=== PATIENT | male | born 1980 | race Caucasian/White ===

== ENCOUNTER 2022-07-29 09:22 | Observation (INO) | payer OTHER, SELFPAY ==
--- NOTE | ~2022-07-29 | CT_ITS ---
EXAMINATION: CT abdomen pelvis w con DATE: 07/29/2022 14:41 INDICATION: radha-rectal abscess TECHNIQUE: Computed tomography (CT) of the abdomen and pelvis was performed with 100 mL Omnipaque-350 intravenous contrast. Automated exposure control and iterative reconstruction technique were employe d. The dose-length product was 410.35 mGy-cm. COMPARISON: None. FINDINGS: Lower thorax: Unremarkable Liver: Normal. Biliary/Gallbladder: Gallbladder is normal. No bile duct dilation. Pancreas: No mass or duct dilation. Spleen: Normal. Adrenals:No mass. Kidneys: No suspicious mass, stone, or hydronephrosis. Bilateral hypodensities that are too small to characterize. GI tract: No small or large bowel dilation. Normal appendix. Diverticulosis without diverticulitis. Mesentery/Peritoneum: No ascites, mass, or free air. Retroperitoneum: No mass. Atherosclerotic abdominal aorta and iliac plaques. Pelvis: Pelvic organs are within normal limits. Soft Tissues: 5.0 x 3.5 x 6.3 cm rim-enhancing fluid collection in the right perirectal subcutaneous fat, with a small tract extending to the rectal wall. Bones: No acute osseous finding. IMPRESSION: 6.3 cm perirectal abscess. Reviewed, dictated and finalized at location K. IMPRESSION: 6.3 cm perirectal abscess.
[2022-07-29 09:41] VITALS: BP 144/99; PULSE 128; RESP 20; TEMP 36.6; O2SAT 97
--- NOTE | 2022-07-29 12:48 | ED.WOUNDLAC ---
HPI - Wound/Laceration General Chief Complaint: Wound/Laceration <Milka Woody PA-C - Last Filed: 07/29/22 15:36> Stated Complaint: abscess <MK Scott Last Filed: 07/29/22 15:36> Time Seen by Provider: 07/29/22 12:35 <MK Scott Last Filed: 07/29/22 15:36> Source: patient <MK Scott Last Filed: 07/29/22 15:36> Mode of arrival: ambulatory <MK Scott Last Filed: 07/29/22 15:36> Limitations: no limitations <MK Scott Last Filed: 07/29/22 15:36> History of Present Illness HPI narrative: This is a 42 year old male that presents to the ER for a area of redness and swelling noted to the right buttock. Ongoing over the last week. Does not think he has had any fevers. No drainage from the area. Reports worsening pain which prompted him to be seen. <Milka Woody PA-C - Last Filed: 07/29/22 15:36> Related Data Allergies/Adverse Reactions: Allergies Allergy/AdvReac Type Severity Reaction Status Date / Time No Known Allergies Allergy Verified 07/29/22 11:02 <Milka Woody PA-C - Last Filed: 07/29/22 15:36> Review of Systems Review of Systems: CONSTITUTIONAL: Denies fever SKIN: Reports erythema and edema <Milka Woody PA-C - Last Filed: 07/29/22 15:36> All systems reviewed & are unremarkable except as noted in HPI and below <MK Scott Last Filed: 07/29/22 15:36> [facility] Past Medical History Medical History: Medical History (Updated 07/29/22 @ 19:15 by Soina Powers MD) Diabetes Tobacco abuse <MK Scott Last Filed: 07/29/22 15:36> Surgical History Surgical History: Surgical History (Updated 07/29/22 @ 15:34 by Krista Gonsalez NP) S/P ORIF (open reduction internal fixation) fracture right ankle <Milka Woody PA-C - Last Filed: 07/29/22 15:36> Family History Family History: Family History (Updated 07/29/22 @ 15:36 by Krista Gonsalez NP) Unknown No problems noted. <Milka Woody PA-C - Last Filed: 07/29/22 15:36> Social History Social History: Social History (Updated 07/29/22 @ 18:40 by Krista Gonsalez NP) Social History: The patient has significant other. He is single and has 3 children. He works in security at [employer]. 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 He does not have a durable power insect control aide for healthcare. Patient smokes a pack a cigarettes daily and is not Go smoking cessation. Code status full code. Smoking packs per day: 1 Smoking cigarettes per day: 20.0 Years smoked: 22 Smoking pack-years: 22.00 Smoking status: Current every day smoker Tobacco type: cigarettes Alcohol intake: never Substance use: never Spiritual care concerns: No Has the Lack of Transportation Kept You From Medical Appointments or From Getting Medications?: No Within the Past 12 Months, Were You Worried Whether Your Food Would Run Out Before You Got Money to Buy More?: Never True What is Your Housing Situation Today?: I Have Housing Are You Worried That in the Next 2 Months, You May Not Have Your Own Housing to Live In?: No Do You Have Trouble Paying Your Heating Or Electricity Bill?: No Do You Have Trouble Paying For Medicines?: No Are You Currently Unemployed and Looking for Work?: No Highest Level of Education Completed: High School Diploma/GED Do You Have Trouble With Childcare or the Care of a Family Member?: No <Milka Woody PA-C - Last Filed: 07/29/22 15:36> Exam Narrative: GENERAL: Well-appearing, well-nourished, and in no acute distress. HEAD: Normocephalic, atraumatic. EYES: EOMI. CHEST: Clear to auscultation. No respiratory distress. No wheezes rales or rhonchi HEART: Regular rate and rhythm. No murmur heard. Normal peripheral pulses. EXTREMITIES: Normal range of motion. No edema. SKIN: Warm, dry, no rash. NEURO: No focal deficits. Al
[2022-07-29 13:10] LABS: Basophils Absolute Auto 0.1 K/mm3 (0.0-0.1); Basophils Percent Auto 0.5 % (0.2-1.2); Eosinophils Absolute Auto 0.1 K/mm3 (0-0.3); Eosinophils Percent Auto 0.4 % (0-4.4); Hematocrit 44.9 % (42.0-52.0); Hemoglobin 15.5 g/dL (14.0-18.0); Immature Granulocyte Absolute 0.09 K/mm3 (0.00-0.031); Immature Granulocyte Percent A 0.6 % (0-0.5); Lymphocytes Absolute Auto 2.43 K/mm3 (0.9-3.2); Lymphocytes Percent Auto 16.7 % (18.3-44.2); Mean Corpuscular HGB Conc 34.5 g/dl (32-36); Mean Corpuscular Hemoglobin 31.3 pg (26-34); Mean Corpuscular Volume 90.5 fl (80-100); Mean Platelet Volume 9.7 fl (7.4-10.4); Monocytes Absolute Auto 1.1 K/mm3 (0.1-0.6); Monocytes Percent Auto 7.2 % (2.6-8.5); Neutrophils Absolute Auto 10.9 K/mm3 (1.3-6.7); Neutrophils Percent Auto 74.6 % (45.5-73.1); Platelet Count Result 347 k/mm3 (150-375); Red Blood Count 4.96 M/mm3 (4.6-6.20); Red Cell Distribution Width 12.5 % (11.5-14.5); White Blood Count 14.6 K/mm3 (4.5-10.0)
[2022-07-29 13:21] LABS: Lactic Acid Reflex 1.3 mmol/L (0.7-2.0)
[2022-07-29 13:36] LABS: Alanine Aminotransferase 15 U/L (6-50); Alkaline Phosphatase 154 U/L (38-126); Anion Gap 13 mmol/L (8-16); Aspartate Amino Transferase 15 U/L (17-59); Bilirubin,Total 0.4 mg/dL (0.2-1.3); Blood Urea Nitrogen 5 mg/dL (9-20); Carbon Dioxide 28 mmol/L (22-30); Chloride 98 mmol/L (98-107); Estimated CRCL calculation 155 ml/min; Estimated Glomerular Filt Rate > 60; Glucose 290 mg/dL (65-110); Potassium 3.9 mmol/L (3.4-5.0); Sodium 139 mmol/L (137-145)
[2022-07-29] MEDS: SODIUM CHLORIDE 0.9% IV 1,000 ML 999 ML IV CONT (13:45)
[2022-07-29 13:55] LABS: Erythrocyte Sedimentation Rate 63 mm/hr (0-20)
[2022-07-29 14:10] VITALS: BP 134/90; PULSE 98; RESP 18; O2SAT 97
[2022-07-29 14:23] LABS: CRP 15.1 mg/dL (<1.0)
[2022-07-29 14:26] LABS: Hemoglobin A1C 12.5 % (<5.7)
--- NOTE | 2022-07-29 15:33 | PM.IMHP ---
H&P: HPI History of Present Illness Date/Time: 07/29/22 15:33 Chief Complaint: Abscess TO right buttocks Narrative: This is a 42-year-old male patient who has no prior medical history and is not on any medications. The patient stated that started to have a bump to his right buttocks approximately a week ago. The patient stated that he continue to get worse. Now it is about 8 size and is causing him some discomfort. His white count is 14.6. Neutrophil percentage is 74.6. Lymph percentage is 16.7. Patient's ESR 63. The patient's blood glucose is 290 with a hemoglobin A1c of 12.5. The patient has no known diabetes in the past. COVID was negative. The patient was started on cefepime, Flagyl and vancomycin. The patient was given morphine for discomfort. Surgery has been consulted. CT of the pelvis and abdomen was read as 6.3 cm perirectal abscess. The patient was taken to OR and had incision and drainage of perirectal abscess. The patient is being admitted to observation status on the date of service of 07/29/2022. Review of Systems Review of Systems: See HPI All systems reviewed & are unremarkable except as noted in HPI and below Constitutional: Constitutional: Reports as per HPI and Reports no additional constitutional complaints Eyes: Eyes: Reports as per HPI and Reports no additional eye complaints ENT: Reports system reviewed and no additional complaints, except as documented and Reports Normal hearing present Cardiovascular: Cardiovascular: Reports no additional cardiovascular complaints Respiratory: Respiratory: Reports no additional respiratory complaints and Reports no additional respiratory complaints Gastrointestinal: Gastrointestinal: Reports as per HPI and Reports no additional gastrointestinal complaints Musculoskeletal: Musculoskeletal: Reports no additional musculoskeletal complaints Integumentary/Breasts: Skin/Breast: Reports system reviewed and no additional complaints, except as docu and Reports as per HPI Neurologic: Reports system reviewed and no additional complaints, except as documented, Reports as per HPI and Reports Normal hearing present Psychiatric: Psychiatric: Reports no additional psychiatric complaints and Reports as per HPI Endocrine: Endocrine: Reports no additional endocrine complaints Hematologic/Lymphatic: Hematologic/Lymphatic: Reports no additional hematologic/lymphatic complaints Allergic/Immunologic: Allergic/Immunologic: Reports no additional allergic/immunologic complaints [facility] Past Medical History Medical History (Updated 07/29/22 @ 18:37 by Krista Gonsalez NP) Diabetes Tobacco abuse Surgical History Surgical History (Updated 07/29/22 @ 15:34 by Krista Gonsalez NP) S/P ORIF (open reduction internal fixation) fracture right ankle Family History Family History (Updated 07/29/22 @ 15:36 by Krista Gonsalez NP) Unknown No problems noted. Social History Social History (Updated 07/29/22 @ 18:40 by Krista Gonsalez NP) Social History: The patient has significant other. He is single and has 3 children. He works in security at [employer]. 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 He does not have a durable power estate attorney for healthcare. Patient smokes a pack a cigarettes daily and is not Go smoking cessation. Code status full code. Smoking packs per day: 1 Smoking cigarettes per day: 20.0 Years smoked: 22 Smoking pack-years: 22.00 Smoking status: Current every day smoker Tobacco type: cigarettes Alcohol intake: never Substance use: never Spiritual care concerns: No Has the Lack of Transportation Kept You From Medical Appointments or From Getting Medications?: No Within the Past 12 Months, Were You Worried Whether Your Food Would Run Out Before You Got Money to Buy More?: Never True What is Your Housing Situation Today?: I Have Housing Are You Worried That in the Next 2 Months, You May Not Have Yo
[2022-07-29] MEDS: metroNIDAZOLE 500 MG/ISO 100ML 500 MG/100 ML BAG 100 MG IVPB ×2 (15:41→21:03)
[2022-07-29 16:45] LABS: SARS-CoV-2 RNA PCR Negative
--- NOTE | 2022-07-29 17:09 | PM.CNGS ---
Assessment and Plan Assessment and plan (1) Abscess, perirectal: Code(s): K61.1 - Rectal abscess Status: Acute Assessment and Plan: Right-sided perirectal abscess. Very painful, large abscess. It will be several hours before the operating room is available. After discussion with Anesthesia colleagues and the patient, we will go ahead with general IV sedation in the emergency room and incision and drainage at the bedside. The procedure and usual recovery discussed. Patient will be admitted after surgery due to the abscess, infection and new onset diabetes. (2) Diabetes mellitus, new onset: Code(s): E11.9 - Type 2 diabetes mellitus without complications Status: Acute Assessment and Plan: Blood sugar 290 on admitting labs. Patient has not had anything to eat since yesterday. (3) Smoker: Code(s): F17.200 - Nicotine dependence, unspecified, uncomplicated Status: Chronic Assessment and Plan: Advised to quit. History of Present Illness Consult details Consult date: 07/29/22 Reason for consult: other (Perirectal abscess) Requesting physician: Milka Woody PA-C Narrative: Patient is a 42-year-old man who for about a week has had worsening pain and swelling on the right buttocks. This became so severe that he came to the emergency room today. He was afebrile [place] [address]. He was also noted to have a blood sugar of 290 and is felt to be a new onset diabetes. Exam as well as CT scan showed a large right sided perirectal abscess. Patient is seen in consultation regarding his perirectal abscess. Patient is also smoker. He does not take any medications at home. Review of Systems Review of Systems: All systems reviewed & are unremarkable except as noted in HPI and below (HPI and those items noted below) Constitutional: Constitutional: Denies chills and Denies fever(s) Cardiovascular: Cardiovascular: Denies chest pain, Denies diaphoresis, Denies dyspnea and Denies paroxysmal nocturnal dyspnea Respiratory: Respiratory: Denies chest congestion, Denies cough and Denies dyspnea Integumentary/Breasts: Skin/Breast: Denies lesions and Denies rash PMFSH Past Medical History Medical History (Updated 07/29/22 @ 15:36 by Milka Woody PA-C) Diabetes No active medical problems Surgical History Surgical History (Updated 07/29/22 @ 15:34 by Krista Gonsalez NP) S/P ORIF (open reduction internal fixation) fracture right ankle Family History Family History (Updated 07/29/22 @ 15:36 by Krista Gonsalez NP) Unknown No problems noted. 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 Smoking status: Current every day smoker Meds Home Medications and Allergies Allergies Allergy/AdvReac Type Severity Reaction Status Date / Time No Known Allergies Allergy Verified 07/29/22 11:02 Vital Signs Vital Signs - 24 hr 07/29/22 09:41 07/29/22 14:10 Temperature 36.6 C Pulse Rate 128 H 98 Respiratory Rate 20 18 Blood Pressure 144/99 H 134/90 Pulse Oximetry 97 97 Oxygen Delivery Room Air Exam Const: General: no acute distress, alert, awake, uncomfortable and thin Nutritional Appearance: thin Orientation/consciousness: patient oriented x3 and No confusion HENMT: Head: normocephalic and atraumatic Mouth: Yes Normal oral and palatal mucosa present Eyes: Conjunctivae: conjunctivae normal Pupils: Equal, round and reactive pupils present EOM: EOMs intact bilaterally Neck: Neck: normal visual inspection, no lymphadenopathy and nontender Resp: Effort & Inspection: normal respiratory effort Auscultation: clear to auscultation bilaterally Cardio: Rate: regular rate Rhythm: regular rhythm Heart sounds: no gallops, no murmurs and no rubs GI: Inspection: non-distended GI Palp: Yes Soft to palpation, No Tenderness
[2022-07-29] MEDS: MORPHINE SULFATE (*CRX) 4 MG/ML INJ IV PUSH (17:15)
--- NOTE | 2022-07-29 17:19 | P.OP_ITS ---
Procedure Note - Detailed Date of Procedure 07/29/22 Pre-op Diagnosis Perirectal abscess Post-op Diagnosis Same Procedure Performed Incision and drainage perirectal abscess Surgeon Berry Thomson MD Anesthesia General (G IV S) Indications Patient presented to the emergency room with about 1 week history of pain and swelling in the area of the right buttocks. Exam and CT scan have shown a large superficial perirectal abscess on the right side. [place] [address]. He is having incision and drainage at this time of the perirectal abscess. Findings Large perirectal abscess Description of Procedure Patient was prone on the exam table in the emergency department. Anesthesia was introduced and the patient was quite comfortable. Prep and drape of the right- sided perirectal abscess was carried out. A cruciate incision was made over the fluctuant area of the abscess. Abundant purulent fluid came forth. This was soaked up with 4x4s. I then expressed as much purulent fluid as possible. I also used a Yankauer suction and suctioned the inside of the abscess to further evacuate the purulent fluid. I was then able to place a finger in the abscess cavity. I broke up a few loculations. A again suctioned the area and tried to evacuate all the purulent fluid. Once this was completed, we cleaned the rectal area buttocks and posterior thigh skin. A large bulky dressing of 4x4s with 2 in tape was placed over the abscess. The patient was awakened and remained in the recovery room with plans to transfer him to an inpatient bed once bed is available. He tolerated the procedure quite well. Estimated Blood Loss -5 Drains No Packing No Pathology None sent Complications No immediate complications Condition Stable Disposition No change [facility] Billing Surgery - Charge Forward: Surgery Billing (Incision and drainage complex perirectal abscess)
--- NOTE | 2022-07-29 17:19 | WPDHPUPDATE1 ---
History and Physical Update Update Date/Time: 07/29/22 17:19 History and Physical has been reviewed, including an updated exam of the patient. There are NO changes in the patient's condition. Risks, benefits, and alternatives have been discussed and questions answered. Patient agrees to proceed with procedure.
[2022-07-29 17:45] VITALS: BP 124/70; PULSE 100; RESP 22; TEMP 36.5; O2SAT 96
[2022-07-29] MEDS: VANCOMYCIN HCL 500 MG in DEXTROSE 5% 100 ML IVPB (19:17)
[2022-07-29 20:42] LABS: Glucose Point of Care 418 mg/dl (65-105)
--- NOTE | 2022-07-29 20:44 | PC.NURSE ---
Krista called bs [phone] units of novolog now and pt to start sliding scale insulin provider to put in sliding scale order.
[2022-07-29] MEDS: INSULIN ASPART (*BKC) 100 UNITS/ML 8 UNITS SUB-Q (21:03)
[2022-07-29 21:46] VITALS: BP 90/44; PULSE 100; RESP 18; TEMP 36.5; O2SAT 92
[2022-07-29 22:51] VITALS: BP 122/66
--- NOTE | 2022-07-29 22:51 | PC.NURSE ---
bp recheck manually 122/66
[2022-07-30] MEDS: SODIUM CHLORIDE 0.9% IV 100 ML 20 ML (03:34)
[2022-07-30] MEDS: metroNIDAZOLE 500 MG/ISO 100ML 500 MG/100 ML BAG 100 MG IVPB ×3 (05:02→21:16)
[2022-07-30 05:54] VITALS: BP 117/76; PULSE 88; RESP 20; TEMP 37.1; O2SAT 98
[2022-07-30 07:05] LABS: Basophils Absolute Auto 0.1 K/mm3 (0.0-0.1); Basophils Percent Auto 0.7 % (0.2-1.2); Eosinophils Absolute Auto 0.2 K/mm3 (0-0.3); Eosinophils Percent Auto 1.7 % (0-4.4); Hematocrit 37.2 % (42.0-52.0); Hemoglobin 12.7 g/dL (14.0-18.0); Immature Granulocyte Absolute 0.07 K/mm3 (0.00-0.031); Immature Granulocyte Percent A 0.7 % (0-0.5); Lymphocytes Absolute Auto 2.82 K/mm3 (0.9-3.2); Lymphocytes Percent Auto 26.7 % (18.3-44.2); Mean Corpuscular HGB Conc 34.1 g/dl (32-36); Mean Corpuscular Hemoglobin 30.3 pg (26-34); Mean Corpuscular Volume 88.8 fl (80-100); Mean Platelet Volume 9.8 fl (7.4-10.4); Monocytes Absolute Auto 0.9 K/mm3 (0.1-0.6); Monocytes Percent Auto 8.9 % (2.6-8.5); Neutrophils Absolute Auto 6.5 K/mm3 (1.3-6.7); Neutrophils Percent Auto 61.3 % (45.5-73.1); Platelet Count Result 312 k/mm3 (150-375); Red Blood Count 4.19 M/mm3 (4.6-6.20); Red Cell Distribution Width 12.5 % (11.5-14.5); White Blood Count 10.6 K/mm3 (4.5-10.0)
[2022-07-30 07:19] LABS: Alanine Aminotransferase 12 U/L (6-50); Albumin Level 3.1 g/dL (3.5-5.1); Alkaline Phosphatase 111 U/L (38-126); Anion Gap 9 mmol/L (8-16); Aspartate Amino Transferase 13 U/L (17-59); Bilirubin,Total 0.3 mg/dL (0.2-1.3); Blood Urea Nitrogen 4 mg/dL (9-20); Calcium 8.2 mg/dL (8.4-10.2); Carbon Dioxide 26 mmol/L (22-30); Chloride 98 mmol/L (98-107); Estimated CRCL calculation 189 ml/min; Estimated Glomerular Filt Rate > 60; Glucose 288 mg/dL (65-110); Magnesium 1.8 mg/dL (1.6-2.3); Potassium 3.5 mmol/L (3.4-5.0); Sodium 133 mmol/L (137-145)
[2022-07-30 07:44] LABS: Glucose Point of Care 294 mg/dl (65-105)
[2022-07-30] MEDS: metFORMIN HCL 250 MG TABLET PO ×2 (08:40→17:21)
[2022-07-30] MEDS: INSULIN ASPART (*BKC) 100 UNITS/ML SUB-Q ×3 (08:41→17:21)
[2022-07-30] MEDS: ENOXAPARIN 40 MG/0.4 ML SYRINGE SUB-Q (08:41)
--- NOTE | 2022-07-30 11:00 | PM.IMPN ---
Progress Note: A&P Assessment and Plan (1) Abscess, perirectal: Code(s): K61.1 - Rectal abscess Status: Acute Assessment and Plan: CT showed a 6.3 cm perirectal abscess general surgery consulted postop day 1 I&D of the abscess performed in the ED cultures are pending at this time continue Flagyl, vancomycin, cefepime WBCs trending down currently 10.6 (2) Diabetes mellitus, new onset: Code(s): E11.9 - Type 2 diabetes mellitus without complications Status: Acute Assessment and Plan: A1c 12.5 current glucose 304 sliding scale added start patient on Lantus 10 units daily diabetic education consult dietitian consult trend glucose adjust therapy as indicated (3) Smoker: Code(s): F17.200 - Nicotine dependence, unspecified, uncomplicated Status: Chronic Assessment and Plan: I offer the patient a nicotine patch. He denied nicotine patch at this time he stated that he would be ok education given for greater than 8 minutes Time Spent With Patient Time with patient: Greater than 35 minutes Subjective Date/time seen: 07/30/22 10:45 Interval history: 07/30/22 1045 Patient seems to be comfortable at this time. Patient stated that he has no chest pain, shortness a breath, nausea, diarrhea, constipation, weakness or fatigue. Will continue antibiotics at this time. Patient stated his pain is controlled. 07/29/22? 15:33 This is a 42-year-old male patient who has no prior medical history and is not on any medications.? The patient stated that started to have a bump to his right buttocks approximately a week ago.? The patient stated that he continue to get worse.? Now it is about 8 size and is causing him some discomfort.? His white count is 14.6.? Neutrophil percentage is 74.6.? Lymph percentage is 16.7.? Patient's ESR 63.? The patient's blood glucose is 290 with a hemoglobin A1c of 12.5.? The patient has no known diabetes in the past.? COVID was negative.? The patient was started on cefepime, Flagyl and vancomycin.? The patient was given morphine for discomfort.? Surgery has been consulted.? CT of the pelvis and abdomen was read as 6.3 cm perirectal abscess.? The patient was taken to OR and had incision and drainage of perirectal abscess.? The patient is being admitted to observation status on the date of service of 07/29/2022. Review of Systems Review of Systems: All systems reviewed & are unremarkable except as noted in HPI and below Exam Const: General: cooperative, healthy appearing, comfortable, no acute distress, well developed, alert, awake, Physically active, average body habitus and well nourished Nutritional Appearance: average body habitus and well nourished Orientation/consciousness: oriented to person, oriented to place, oriented to time and patient oriented x3 Limitations: no limitations HENMT: Head: normal to inspection, No palpable skull fracture present, normocephalic, atraumatic and abrasion Ears: hearing grossly normal bilaterally and external ears normal Face/Nose/Sinus: Normal external nose present and Normal nares present Eyes: General: appearance normal, both eyes and all related structures Alignment and Position: alignment normal Periorbital: periorbital findings normal Eyelids: eyelids normal Sclera: sclerae normal Pupils: Equal, round and reactive pupils present EOM: EOMs intact bilaterally Neck: Neck: normal visual inspection, full ROM, no lymphadenopathy, trachea midline and supple Chest: Chest palpation & inspection: normal inspection of the chest Resp: Effort & Inspection: normal respiratory effort Auscultation: clear to auscultation bilaterally Cardio: Palpation: normal PMI Rate: regular rate Rhythm: regular rhythm Heart sounds: S1 normal heart sound present and S2 normal heart sound present Peripheral pulses: Peripheral pulses 2+ throughout GI: Inspection: jolanta
[2022-07-30 11:40] LABS: Glucose Point of Care 304 mg/dl (65-105)
--- NOTE | 2022-07-30 11:44 | WPDANESEPPF ---
Anes - Initial Pre Proc Eval Procedure: Operation Date: 07/29/22 17:30 Proposed Procedures p Incision and Drainage Michelle-Rectal Abscess - Berry Thomson MD Date/Time: 07/29/22 16:00 Surgeon: Adams Mauro MD Pre Op Diagnosis: new onseet diabestes mellitus,perirectal abcess Patient Data Age: 42 Gender: M Height: 1.73 m Weight: 74 kg Last Vital Signs Temp 37.1 C 07/30/22 05:54 Pulse 88 07/30/22 05:54 Resp 20 07/30/22 05:54 BP 117/76 07/30/22 05:54 Pulse Ox 98 07/30/22 05:54 O2 Del Method Room Air 07/29/22 20:00 Allergies Allergy/AdvReac Type Severity Reaction Status Date / Time No Known Allergies Allergy Verified 07/29/22 11:02 Laboratory Tests 07/29/22 07/29/22 07/29/22 13:01 13:01 13:01 WBC 14.6 K/mm3 H K/mm3 (4.5-10.0) RBC 4.96 M/mm3 M/mm3 (4.6-6.20) Hgb 15.5 g/dL g/dL (14.0-18.0) Hct 44.9 % % (42.0-52.0) MCV 90.5 fl fl (80-100) MCH 31.3 pg pg (26-34) MCHC 34.5 g/dl g/dl (32-36) RDW 12.5 % % (11.5-14.5) Plt Count 347 k/mm3 k/mm3 (150-375) MPV 9.7 fl fl (7.4-10.4) Immature Gran % (Auto) 0.6 % H % (0-0.5) Neut % (Auto) 74.6 % H % (45.5-73.1) Lymph % (Auto) 16.7 % L % (18.3-44.2) [place] % (Auto) 7.2 % % (2.6-8.5) Eos % (Auto) 0.4 % % (0-4.4) Baso % (Auto) 0.5 % % (0.2-1.2) Lymph # (Auto) 2.43 K/mm3 K/mm3 (0.9-3.2) [place] # (Auto) 1.1 K/mm3 H K/mm3 (0.1-0.6) Eos # (Auto) 0.1 K/mm3 K/mm3 (0-0.3) Baso # (Auto) 0.1 K/mm3 K/mm3 (0.0-0.1) Abs Immat Gran (auto) 0.09 K/mm3 H K/mm3 (0.00-0.031) Absolute Neuts (auto) 10.9 K/mm3 H K/mm3 (1.3-6.7) Absolute Nucleated RBC 0.0 K/mm3 K/mm3 (0.0-0.012) Nucleated RBC % 0.0 % % (0.0-0.2) ESR 63 mm/hr H mm/hr (0-20) Sodium 139 mmol/L mmol/L (137-145) Potassium 3.9 mmol/L mmol/L (3.4-5.0) Chloride 98 mmol/L mmol/L (98-107) Carbon Dioxide 28 mmol/L mmol/L (22-30) Anion Gap 13 mmol/L mmol/L (8-16) BUN 5 mg/dL L mg/dL (9-20) Creatinine 0.50 mg/dL L mg/dL (0.7-1.3) Estim Creat Clear Calc 155 ml/min ml/min Estimated GFR > 60 (59 - ) Glucose 290 mg/dL H mg/dL (65-110) POC Capillary Glucose Hemoglobin A1c Lactic Acid 1.3 mmol/L mmol/L (0.7-2.0) Calcium 9.0 mg/dL mg/dL (8.4-10.2) Magnesium Total Bilirubin 0.4 mg/dL mg/dL (0.2-1.3) AST 15 U/L L U/L (17-59) ALT 15 U/L U/L (6-50) Alkaline Phosphatase 154 U/L H U/L (38-126) C-Reactive Protein 15.1 mg/dL H mg/dL (<1.0) Total Protein 7.0 g/dL g/dL (6.3-8.2) Albumin 4.0 g/dL g/dL (3.5-5.1) SARS-CoV-2 RNA (RT-PCR) 10/19/22 10/19/22 10/19/22 13:54 15:43 20:39 WBC RBC Hgb Hct MCV MCH MCHC RDW Plt Count MPV Immature Gran % (Auto) Neut % (Auto) Lymph % (Auto) [place] % (Auto) Eos % (Auto) Baso % (Auto) Lymph # (Auto) [place] # (Auto) Eos # (Auto) Baso # (Auto) Abs Immat Gran (auto) Absolute Neuts (auto) Absolute Nucleated RBC Nucleated RBC % ESR Sodium Potassium Chloride Carbon Dioxide Anion Gap BUN Creatinine Estim Creat Clear Calc Estimated GFR Glucose POC Capillary Glucose 418 mg/dl H mg/dl (65-105) Hemoglobi
--- NOTE | 2022-07-30 12:22 | WPDANESPN ---
Anes - Prog Note Post-Op Date/Time: 07/30/22 12:22 Vital Signs: Last Vital Signs Temp 37.1 C 07/30/22 05:54 Pulse 88 07/30/22 05:54 Resp 20 07/30/22 05:54 BP 117/76 07/30/22 05:54 Pulse Ox 98 07/30/22 05:54 O2 Del Method Room Air 07/29/22 20:00 Pain Score (VAS): 0 I/O: Intake & Output 07/29/22 07/30/22 07/30/22 23:59 07:59 15:59 Intake Total 250 1800 290 Output Total 1750 500 Balance 250 50 -210 Laboratory Tests 07/30/22 06:35 07/30/22 06:35 07/29/22 07/29/22 07/29/22 13:01 13:01 13:01 WBC 14.6 H RBC 4.96 Hgb 15.5 Hct 44.9 MCV 90.5 MCH 31.3 MCHC 34.5 RDW 12.5 Plt Count 347 MPV 9.7 Immature Gran % (Auto) 0.6 H Neut % (Auto) 74.6 H Lymph % (Auto) 16.7 L Baxter % (Auto) 7.2 Eos % (Auto) 0.4 Baso % (Auto) 0.5 Lymph # (Auto) 2.43 Baxter # (Auto) 1.1 H Eos # (Auto) 0.1 Baso # (Auto) 0.1 Abs Immat Gran (auto) 0.09 H Absolute Neuts (auto) 10.9 H Absolute Nucleated RBC 0.0 Nucleated RBC % 0.0 ESR 63 H Sodium 139 Potassium 3.9 Chloride 98 Carbon Dioxide 28 Anion Gap 13 BUN 5 L Creatinine 0.50 L Estim Creat Clear Calc 155 Estimated GFR > 60 Glucose 290 H POC Capillary Glucose Hemoglobin A1c Lactic Acid 1.3 Calcium 9.0 Magnesium Total Bilirubin 0.4 AST 15 L ALT 15 Alkaline Phosphatase 154 H C-Reactive Protein 15.1 H Total Protein 7.0 Albumin 4.0 SARS-CoV-2 RNA (RT-PCR) 07/29/22 07/29/22 07/29/22 13:54 15:43 20:39 WBC RBC Hgb Hct MCV MCH MCHC RDW Plt Count MPV Immature Gran % (Auto) Neut % (Auto) Lymph % (Auto) Baxter % (Auto) Eos % (Auto) Baso % (Auto) Lymph # (Auto) Baxter # (Auto) Eos # (Auto) Baso # (Auto) Abs Immat Gran (auto) Absolute Neuts (auto) Absolute Nucleated RBC Nucleated RBC % ESR Sodium Potassium Chloride Carbon Dioxide Anion Gap BUN Creatinine Estim Creat Clear Calc Estimated GFR Glucose POC Capillary Glucose 418 H Hemoglobin A1c 12.5 H Lactic Acid Calcium Magnesium Total Bilirubin AST ALT Alkaline Phosphatase C-Reactive Protein Total Protein Albumin SARS-CoV-2 RNA (RT-PCR) Negative 07/30/22 07/30/22 07/30/22 06:35 06:35 06:35 WBC 10.6 H RBC 4.19 L Hgb 12.7 L Hct 37.2 L MCV 88.8 MCH 30.3 MCHC 34.1 RDW 12.5 Plt Count 312 MPV 9.8 Immature Gran % (Auto) 0.7 H Neut % (Auto) 61.3 Lymph % (Auto) 26.7 Baxter % (Auto) 8.9 H Eos % (Auto) 1.7 Baso % (Auto) 0.7 Lymph # (Auto) 2.82 Baxter # (Auto) 0.9 H Eos # (Auto) 0.2 Baso # (Auto) 0.1 Abs Immat Gran (auto) 0.07 H Absolute Neuts (auto) 6.5 Absolute Nucleated RBC 0.0 Nucleated RBC % 0.0 ESR Sodium 133 L Potassium 3.5 Chloride 98 Carbon Dioxide 26 Anion Gap 9 BUN 4 L Creatinine 0.40 L Estim Creat Clear Calc 189 Estimated GFR > 60 Glucose 288 H POC Capillary Glucose Hemoglobin A1c Lactic Acid 1.0 Calcium 8.2 L Magnesium 1.8 Total Bilirubin 0.3 AST 13 L ALT 12 Alkaline Phosphatase 111 C-Reactive Protein Total Protein 6.0 L Albumin 3.1 L SARS-CoV-2 RNA (RT-PCR) 07/30/22 07/30/22 07:33 11:31 WBC RBC Hgb Hct MCV MCH MCHC RDW Plt Count MPV Immature Gran % (Auto) Neut % (Auto) Lymph % (Auto) Baxter % (Auto) Eos % (Auto) Baso % (Auto) Lymph # (Auto) Baxter # (Auto) Eos # (Auto) Baso # (Auto) Abs Immat Gran (auto) Absolute Neuts (auto) Absolute Nucleated RBC Nucleated RBC % ESR Sodium Potassium Chloride Carbon Dioxide Anion Gap BUN Creatinine Estim Creat Clear Calc Estimated GFR Glucose POC Capillary Glucose 294 H 304 H Hemoglobin A1c
[2022-07-30 13:55] VITALS: BP 109/61; PULSE 89; RESP 18; TEMP 36.2; O2SAT 98
--- NOTE | 2022-07-30 13:57 | PCNSR ---
On 07/30/22, the student, Uday Olmos, provided care and completed [facility] documentation on this patient. I have reviewed the student's documentation and agree with the findings.
[2022-07-30 16:24] LABS: Glucose Point of Care 240 mg/dl (65-105)
--- NOTE | 2022-07-30 17:43 | PM.PNGS ---
Progress Note: A&P Assessment and Plan (1) Abscess, perirectal: Code(s): K61.1 - Rectal abscess Status: Acute Assessment and Plan: Appears to be well drained. Will start Sitz baths and dressing changes. Medical treatment per hospitalist service. Will follow along. Subjective Subjective Date/Time Seen: 07/30/22 17:43 Patient reports: no new complaints and feels better Exam GI: Rectal Exam: abscess ( well drained, no purulence, much smaller.) Objective Data Vital Signs Vital Signs: Vital Signs - 24 hr 07/29/22 17:45 07/29/22 20:00 07/29/22 21:46 Temperature 36.5 C 36.5 C Pulse Rate 100 100 Respiratory Rate 22 H 18 Blood Pressure 124/70 90/44 L Pulse Oximetry 96 92 Oxygen Delivery Room Air 07/29/22 22:51 07/30/22 05:54 07/30/22 13:55 Temperature 37.1 C 36.2 C L Pulse Rate 88 89 Respiratory Rate 20 18 Blood Pressure 122/66 117/76 109/61 Pulse Oximetry 98 98 Oxygen Delivery Intake/Output Intake/Output: Intake & Output 07/27/22 07/28/22 07/29/22 07/30/22 23:59 23:59 23:59 23:59 Intake Total 1250 3112 Output Total 2250 Balance 1250 862 Meds/Results Medications: Active Medications Generic Name Dose Route Start Last Admin Trade Name Freq PRN Reason Stop Dose Admin Dextrose 12.5 gm 07/29/22 18:33 Dextrose 50% 25 Gm/50 Ml Syringe IV PUSH PRN PRN Hypoglycemia Protocol Enoxaparin Sodium 40 mg 07/30/22 09:00 07/30/22 08:41 Enoxaparin 40 Mg/0.4 Ml Syringe SUB-Q 40 mg DAILY SNEHA Administration Glucagon 1 mg 07/29/22 18:33 Glucagon For Inj 1 Mg Vial IM PRN PRN Hypoglycemia Protocol Glucose 15 gm 07/29/22 18:33 Glucose Oral Gel 15 Gm Of Glucse In 37.5 Gm Tube PO PRN PRN Hypoglycemia Protocol Cefepime HCl 2 gm in 50 mls @ 100 mls/hr 07/30/22 04:00 07/30/22 17:20 Maxipime 2 Gm/D5w 50 Ml IVPB 100 mls/hr Q12H SNEHA Administration Metronidazole 500 mg in 100 mls @ 100 mls/hr 07/29/22 22:00 07/30/22 14:35 Flagyl 500 Mg/Iso Soln 100 Ml IVPB Infused Q8HR SNEHA Infusion Vancomycin HCl 1,500 mg in 500 mls @ 333.333 mls/hr 07/30/22 06:00 07/30/22 07:56 Vancomycin 1,500 Mg/D5w 500 Ml IVPB Infused Q12H SNEHA Infusion Dextrose 1,000 mls @ 100 mls/hr 07/29/22 18:33 Dextrose 5% 1,000 Ml IVPB PRN PRN Hypoglycemia Protocol Insulin Aspart 2 - 5 units 07/30/22 08:00 07/30/22 17:21 Insulin Aspart (*Bkc) 100 Units/Ml SUB-Q 2 units TIDWM SNEAH Administration Protocol Metformin HCl 250 mg 07/30/22 08:00 07/30/22 17:21 Metformin Hcl 250 Mg Tablet PO 250 mg BIDWM SNEHA Administration Radiology Results: ITS Impressions Abdomen/Pelvis CT 07/29/22 14:46 IMPRESSION: 6.3 cm perirectal abscess. Labs Labs: Laboratory Results - last 24 hr 07/29/22 07/30/22 07/30/22 20:39 06:35 06:35 WBC 10.6 H RBC 4.19 L Hgb 12.7 L Hct 37.2 L MCV 88.8 MCH 30.3 MCHC 34.1 RDW 12.5 Plt Count 312 MPV 9.8 Immature Gran % (Auto) 0.7 H Neut % (Auto) 61.3 Lymph % (Auto) 26.7 Terrell % (Auto) 8.9 H Eos % (Auto) 1.7 Baso % (Auto) 0.7 Lymph # (Auto) 2.82 Terrell # (Auto) 0.9 H Eos # (Auto) 0.2 Baso # (Auto) 0.1 Abs Immat Gran (auto) 0.07 H Absolute Neuts (auto) 6.5 Absolute Nucleated RBC 0.0 Nucleated RBC % 0.0 Sodium 133 L Potassium 3.5 Chloride 98 Carbon Dioxide 26 Anion Gap 9 BUN 4 L Creatinine 0.40 L Estim Creat Clear Calc 189 Estimated GFR > 60 Glucose 288 H POC Capillary Glucose 418 H Lactic Acid Calcium 8.2 L Magnesium 1.8 Total Bilirubin 0.3 AST 13 L ALT 12 Alkaline Phosphatase 111 Total Protein 6.0 L Albumin 3.1 L 07/30/22 07/30/22 07/30/22 06:35 07:33 11:31 WBC RBC Hgb Hct MCV MCH MCHC RDW Plt Count MPV Immature Gran % (Auto)
[2022-07-30 20:47] LABS: Glucose Point of Care 341 mg/dl (65-105)
[2022-07-30 21:08] VITALS: BP 116/60; PULSE 66; RESP 16; TEMP 36.4; O2SAT 99
[2022-07-30] MEDS: INSULIN GLARGINE (*BKC) 100 UNITS/ML 10 UNITS SUB-Q (21:16)
[2022-07-30] MEDS: INSULIN ASPART (*BKC) 100 UNITS/ML 6 UNITS SUB-Q (21:16)
[2022-07-31] MEDS: metroNIDAZOLE 500 MG/ISO 100ML 500 MG/100 ML BAG 100 MG IVPB ×2 (05:43→13:34)
[2022-07-31 05:59] VITALS: BP 113/80; PULSE 79; RESP 16; TEMP 36.4; O2SAT 97
[2022-07-31 06:27] LABS: Hematocrit 37.9 % (42.0-52.0); Hemoglobin 13.1 g/dL (14.0-18.0); Mean Corpuscular HGB Conc 34.6 g/dl (32-36); Mean Corpuscular Hemoglobin 30.5 pg (26-34); Mean Corpuscular Volume 88.3 fl (80-100); Mean Platelet Volume 9.6 fl (7.4-10.4); Platelet Count Result 302 k/mm3 (150-375); Red Blood Count 4.29 M/mm3 (4.6-6.20); Red Cell Distribution Width 12.4 % (11.5-14.5); White Blood Count 8.9 K/mm3 (4.5-10.0)
[2022-07-31 06:40] LABS: Anion Gap 10 mmol/L (8-16); Blood Urea Nitrogen 9 mg/dL (9-20); Calcium 8.1 mg/dL (8.4-10.2); Carbon Dioxide 28 mmol/L (22-30); Chloride 100 mmol/L (98-107); Estimated CRCL calculation 155 ml/min; Estimated Glomerular Filt Rate > 60; Glucose 253 mg/dL (65-110); Potassium 3.6 mmol/L (3.4-5.0); Sodium 138 mmol/L (137-145)
[2022-07-31 06:57] LABS: Vancomycin Trough 6.6 ug/mL (10.0-20.0)
--- NOTE | 2022-07-31 07:42 | PM.IMPN ---
Progress Note: A&P Assessment and Plan (1) Abscess, perirectal: Code(s): K61.1 - Rectal abscess Status: Acute Assessment and Plan: CT showed a 6.3 cm perirectal abscess general surgery consulted postop day 2 I&D of the abscess performed in the ED cultures NGTD continue Flagyl, vancomycin, cefepime WBCs trending down currently 8.9 (2) Diabetes mellitus, new onset: Code(s): E11.9 - Type 2 diabetes mellitus without complications Status: Acute Assessment and Plan: A1c 12.5 current glucose 253 sliding scale added Increase Lantus to 15 units daily One time dose of lantus 5 units diabetic education consult dietitian consult trend glucose adjust therapy as indicated (3) Smoker: Code(s): F17.200 - Nicotine dependence, unspecified, uncomplicated Status: Chronic Assessment and Plan: I offer the patient a nicotine patch. He denied nicotine patch at this time he stated that he would be ok education given for greater than 8 minutes Time Spent With Patient Time with patient: Greater than 35 minutes Subjective Date/time seen: 07/31/22 07:42 Interval history: 07/31/22 07/30/22 1045 Patient seems to be comfortable at this time. Patient stated that he has no chest pain, shortness a breath, nausea, diarrhea, constipation, weakness or fatigue. Will continue antibiotics at this time. Patient stated his pain is controlled. 07/29/22? 15:33 This is a 42-year-old male patient who has no prior medical history and is not on any medications.? The patient stated that started to have a bump to his right buttocks approximately a week ago.? The patient stated that he continue to get worse.? Now it is about 8 size and is causing him some discomfort.? His white count is 14.6.? Neutrophil percentage is 74.6.? Lymph percentage is 16.7.? Patient's ESR 63.? The patient's blood glucose is 290 with a hemoglobin A1c of 12.5.? The patient has no known diabetes in the past.? COVID was negative.? The patient was started on cefepime, Flagyl and vancomycin.? The patient was given morphine for discomfort.? Surgery has been consulted.? CT of the pelvis and abdomen was read as 6.3 cm perirectal abscess.? The patient was taken to OR and had incision and drainage of perirectal abscess.? The patient is being admitted to observation status on the date of service of 07/29/2022. Review of Systems Review of Systems: All systems reviewed & are unremarkable except as noted in HPI and below Exam Const: General: cooperative, healthy appearing, comfortable, no acute distress, well developed, alert, awake, Physically active, average body habitus and well nourished Nutritional Appearance: average body habitus and well nourished Orientation/consciousness: oriented to person, oriented to place, oriented to time and patient oriented x3 Limitations: no limitations HENMT: Head: normal to inspection, No palpable skull fracture present, normocephalic, atraumatic and abrasion Ears: hearing grossly normal bilaterally and external ears normal Face/Nose/Sinus: Normal external nose present and Normal nares present Eyes: General: appearance normal, both eyes and all related structures Alignment and Position: alignment normal Periorbital: periorbital findings normal Eyelids: eyelids normal Sclera: sclerae normal Pupils: Equal, round and reactive pupils present EOM: EOMs intact bilaterally Neck: Neck: normal visual inspection, full ROM, no lymphadenopathy, trachea midline and supple Chest: Chest palpation & inspection: normal inspection of the chest Resp: Effort & Inspection: normal respiratory effort Auscultation: clear to auscultation bilaterally Cardio: Palpation: normal PMI Rate: regular rate Rhythm: regular rhythm Heart sounds: S1 normal heart sound present and S2 normal heart sound present Peripheral pulses: Peripheral pulses 2+ throughout
--- NOTE | 2022-07-31 07:55 | PM.PNGS ---
Progress Note: A&P Assessment and Plan (1) Abscess, perirectal: Code(s): K61.1 - Rectal abscess Status: Acute Assessment and Plan: It appears abscess drainage has been affective. Patient should wash the area or take a Sitz bath twice a day and p.r.n.. Keep covered with 4 x 4 gauze unless having bowel movement or washing the area. Discharge instructions have been written to this effect. Can be on regular diabetic diet from my perspective. Follow up with me 2 weeks after discharge. Will follow peripherally. (2) Diabetes mellitus, new onset: Code(s): E11.9 - Type 2 diabetes mellitus without complications Status: Acute Assessment and Plan: Hospitalist managing. Subjective Subjective Date/Time Seen: 07/31/22 07:55 Post Op day: 2 Patient reports: no new complaints and feels better Exam Const: General: comfortable, alert and awake GI: Rectal Exam: abscess ( Continues to drain. Collapsed, healing adequately.) Other: Wound care instructions communicated to the patient. Objective Data Vital Signs Vital Signs: Vital Signs - 24 hr 07/30/22 13:55 07/30/22 20:00 07/30/22 21:08 Temperature 36.2 C L 36.4 C Pulse Rate 89 66 Respiratory Rate 18 16 Blood Pressure 109/61 116/60 Pulse Oximetry 98 99 Oxygen Delivery Room Air 07/31/22 05:59 Temperature 36.4 C Pulse Rate 79 Respiratory Rate 16 Blood Pressure 113/80 Pulse Oximetry 97 Oxygen Delivery Intake/Output Intake/Output: Intake & Output 07/28/22 07/29/22 07/30/22 07/31/22 23:59 23:59 23:59 23:59 Intake Total 1250 3762 150 Output Total 2250 250 Balance 1250 1512 -100 Meds/Results Medications: Active Medications Generic Name Dose Route Start Last Admin Trade Name Freq PRN Reason Stop Dose Admin Dextrose 12.5 gm 07/29/22 18:33 Dextrose 50% 25 Gm/50 Ml Syringe IV PUSH PRN PRN Hypoglycemia Protocol Enoxaparin Sodium 40 mg 07/30/22 09:00 07/30/22 08:41 Enoxaparin 40 Mg/0.4 Ml Syringe SUB-Q 40 mg DAILY SNEHA Administration Glucagon 1 mg 07/29/22 18:33 Glucagon For Inj 1 Mg Vial IM PRN PRN Hypoglycemia Protocol Glucose 15 gm 07/29/22 18:33 Glucose Oral Gel 15 Gm Of Glucse In 37.5 Gm Tube PO PRN PRN Hypoglycemia Protocol Cefepime HCl 2 gm in 50 mls @ 100 mls/hr 07/30/22 04:00 07/31/22 04:50 Maxipime 2 Gm/D5w 50 Ml IVPB Infused Q12H SNEHA Infusion Metronidazole 500 mg in 100 mls @ 100 mls/hr 07/29/22 22:00 07/31/22 06:44 Flagyl 500 Mg/Iso Soln 100 Ml IVPB Infused Q8HR SNEHA Infusion Dextrose 1,000 mls @ 100 mls/hr 07/29/22 18:33 Dextrose 5% 1,000 Ml IVPB PRN PRN Hypoglycemia Protocol Vancomycin HCl 2,000 mg in 500 mls @ 250 mls/hr 07/31/22 08:00 Vancomycin 2,000 Mg/D5w 500 Ml IVPB Q12H SNEHA Insulin Aspart 2 - 5 units 07/30/22 08:00 07/30/22 17:21 Insulin Aspart (*Bkc) 100 Units/Ml SUB-Q 2 units TIDWM SNEHA Administration Protocol Insulin Glargine 15 units 07/31/22 21:00 Insulin Glargine (*Bkc) 100 Units/Ml SUB-Q HS SNEHA Metformin HCl 250 mg 07/30/22 08:00 07/30/22 17:21 Metformin Hcl 250 Mg Tablet PO 250 mg BIDWM SNEHA Administration Radiology Results: ITS Impressions Abdomen/Pelvis CT 07/29/22 14:46 IMPRESSION: 6.3 cm perirectal abscess. Labs Labs: Laboratory Results - last 24 hr 07/30/22 07/30/22 07/30/22 11:31 16:19 20:45 WBC RBC Hgb Hct MCV MCH MCHC RDW Plt Count MPV Sodium Potassium Chloride Carbon Dioxide Anion Gap BUN Creatinine Estim Creat Clear Calc Estimated GFR Glucose POC Capillary Glucose 304 H 240 H 341 H Calcium Vancomycin Trough 07/31/22 07/31/22 07/31/22 06:02 06:02 06:02 WBC 8.9 RBC 4.29 L Hgb 13.1 L Hct 37.9 L MCV 88.3 MCH 30.5 MCHC 34.6 RDW 12.4 Plt Count
[2022-07-31] MEDS: INSULIN GLARGINE (*BKC) 100 UNITS/ML SUB-Q (08:40)
[2022-07-31] MEDS: INSULIN ASPART (*BKC) 100 UNITS/ML SUB-Q ×2 (09:00→12:12)
[2022-07-31] MEDS: metFORMIN HCL 250 MG TABLET PO ×2 (09:10→13:35)
[2022-07-31] MEDS: ENOXAPARIN 40 MG/0.4 ML SYRINGE SUB-Q (09:10)
[2022-07-31 11:36] LABS: Glucose Point of Care 293 mg/dl (65-105)
--- NOTE | 2022-07-31 12:15 | PM.DS ---
DS: Admitting Diagnosis Discharge Date 07/31/22 1215 Admitting Diagnosis Perirectal ABscess, new onset Diabetes DS: Discharge Diagnosis Discharge Diagnosis (1) Abscess, perirectal: Code(s): K61.1 - Rectal abscess Status: Acute Assessment and Plan: CT showed a 6.3 cm perirectal abscess general surgery consulted postop day 2 I&D of the abscess performed in the ED cultures NGTD continue Flagyl, vancomycin, cefepime WBCs trending down currently 8.9 (2) Diabetes mellitus, new onset: Code(s): E11.9 - Type 2 diabetes mellitus without complications Status: Acute Assessment and Plan: A1c 12.5 current glucose 253 sliding scale added Increase Lantus to 15 units daily One time dose of lantus 5 units diabetic education consult dietitian consult trend glucose adjust therapy as indicated (3) Smoker: Code(s): F17.200 - Nicotine dependence, unspecified, uncomplicated Status: Chronic Assessment and Plan: denied nicotine patch at this time he stated that he would be ok education given for greater than 8 minutes DS: Summary Hospital Course Hospital Course: Patient is a 42-year-old male with a past medical history of tobacco abuse who presented to the ED with complaints a bump on his right buttocks about a week ago. Patient stated that he has had increased discomfort. It was noted that upon arrival his white count was 14.6. Patient was also noted to have a elevated glucose of 290. Hemoglobin A1c was drawn and it was 12.5. Patient has no history of diabetes and has been started on metformin, Lantus, insulin sliding scale. been consulted for the abscess and took him to the OR for drainage. blood cultures were negative. Current glucose is 253 patient is stable for discharge at this time. Patient denies any chest pain, shortness a breath, nausea, vomiting, diarrhea, constipation, weakness or fatigue. Patient was initially started on Flagyl, vancomycin, cefepime. Education about tobacco abuse has been given to the patient patient is stable for discharge for labs and vital signs at this time. Time spent discussing smoking cessation with patient: more than 10 minutes Status at Discharge Functional status at discharge: independent ambulation Overall status at discharge: patient is back to baseline Time Spent with Patient Time attestation: Total time spent providing and/or coordinating discharge services: 38 minutes Time spent: Greater than 30 minutes Specific discharge activities: Diagnostic testing, chart review, developing a treatment plan, education, care coordination documentation, physical exam, result review Exam Const: General: cooperative, healthy appearing, comfortable, no acute distress, well developed, alert, awake, Physically active, average body habitus and well nourished Nutritional Appearance: average body habitus and well nourished Orientation/consciousness: oriented to person, oriented to place, oriented to time and patient oriented x3 Limitations: no limitations HENMT: Head: normal to inspection, No palpable skull fracture present, normocephalic, atraumatic and abrasion Ears: hearing grossly normal bilaterally and external ears normal Face/Nose/Sinus: Normal external nose present and Normal nares present Eyes: General: appearance normal, both eyes and all related structures Alignment and Position: alignment normal Periorbital: periorbital findings normal Eyelids: eyelids normal Sclera: sclerae normal Pupils: Equal, round and reactive pupils present EOM: EOMs intact bilaterally Neck: Neck: normal visual inspection, full ROM, no lymphadenopathy, trachea midline and supple Chest: Chest palpation & inspection: normal inspection of the chest Resp: Effort & Inspection: normal respiratory effort Auscultation: clear to auscultation bilaterally Cardio: Palpation: normal PMI Rate: regular rate
[2022-07-31 13:35] VITALS: BMI 24.7
[2022-08-02 02:44] LABS: Glucose Point of Care 258 mg/dl (65-105)
== END 2022-07-31 15:09 | disposition home or self-care (01) ==
LOC: ANHED 16:18 → ANH3MEDSUR 16:57
PROVIDERS: Nurse Practitioner; Physician Assistant; Surgery; Admitting Provider Internal Medicine; Emergency Provider Emergency Medicine; PCP Family Medicine; Visit Provider Internal Medicine
DX: A41.9 Sepsis, unspecified organism (principal); K61.1 Rectal abscess; D72.829 Elevated white blood cell count, unspecified; E11.9 Type 2 diabetes mellitus without complications; F17.210 Nicotine dependence, cigarettes, uncomplicated; R65.10 Systemic inflammatory response syndrome (SIRS) of non-infectious origin without acute organ dysfunction; Z20.822 Contact with and (suspected) exposure to COVID-19
CPT/HCPCS: 46040; 36415; 74177; 80048; 80053; 80202; 82565; 82948; 83036; 83605; 83735; 85025; 85027; 85652; 86140; 87040; 96361; 96365; 96368; 96375; 99285; A9270; C9803; G0378; J0692; J1650; J1815; J2270; J2704; J3370; J7030; Q9967; U0003; U0005